=== PATIENT | male | born 1950 | race African-American/Black ===

== ENCOUNTER 2024-07-01 22:36 | Inpatient (IN) | payer OTHER ==
[~2024-07-01] VITALS: Ht 175.3 cm; Wt 50.0 kg
[2024-07-01 23:31] LABS: BASOPHILS % (AUTO) 0.7 % (0.0-2.0); HEMATOCRIT 36.1 % (41-53); HEMOGLOBIN 11.3 g/dL (13.5-17.5); LYMPHOCYTES # (AUTO) 0.5 K/uL (1.0-4.8); LYMPHOCYTES % (AUTO) 6.4 % (22.0-44.0); MEAN CORPUSCULAR HEMOGLOBIN 27.1 pg (26.0-34.0); MEAN CORPUSCULAR HGB CONC 31.3 G/dL (31.0-37.0); MEAN CORPUSCULAR VOLUME 87 fL (80-100); MONOCYTES # (AUTO) 0.5 K/uL (0.1-1.0); MONOCYTES % (AUTO) 6.9 % (2.0-9.0); NEUTROPHILS # (AUTO) 6.1 K/uL (1.8-7.7); PLATELET COUNT (AUTO) 370 K/uL (150-450); RED BLOOD CELL COUNT(AUTO) 4.17 MIL/uL (4.50-5.90); RED CELL DISTRIBUTION WIDTH 15.8 % (11.5-14.5); WHITE BLOOD COUNT (AUTO) 7.2 K/uL (4.5-11.0)
[2024-07-01 23:40] LABS: ANION GAP 14 mmol/L (8-16); CALCIUM, TOTAL 9.3 mg/dL (8.8-10.5); CARBON DIOXIDE 22 mmol/L (22-29); CHLORIDE 100 mmol/L (98-107); CREATININE 2.45 mg/dL (0.60-1.30); GLOMERULAR FILTR. RATE CALC 32 mL/min (>60); GLUCOSE,RANDOM 103 mg/dL (70-110); POTASSIUM 4.3 mmol/L (3.5-5.1); SODIUM SERUM 136 mmol/L (136-145); UREA NITROGEN, BLOOD 29 mg/dL (7-18)
[2024-07-01] MEDS: MAGNESIUM SULFATE 2 GM, MVI, ADULT NO.1 WITH VIT K 10 ML, THIAMINE 100 MG, FOLIC ACID 1... IV ONE (23:41)
[2024-07-01] MEDS ORDERED: ONDANSETRON HCL 4 MG/2 ML VIAL IVP PRN (23:45)
[2024-07-01] MEDS ORDERED: ACETAMINOPHEN 325 MG TABLET PO PRN (23:45)
[2024-07-01 23:50] LABS: LIPASE 48 U/L (16-77)
[2024-07-01 23:54] LABS: LACTIC ACID 4.2 mmol/L (0.4-2.0); TROPONIN I-HIGH SENSITIVITY 703 ng/L (<76)
[2024-07-02 00:12] LABS: ALCOHOL, BLOOD (SERUM) < 3 mg/dL (0-10)
[2024-07-02] MEDS: HEPARIN SODIUM,PORCINE 5,000 UNITS/ML VIAL SQ SCH (00:12)
[2024-07-02 00:22] LABS: CREATINE KINASE, TOTAL ONLY 239 U/L (39-308)
[2024-07-02] MEDS: SODIUM CHLORIDE 0.9% 1,000 ML IV ONE ×2 (00:45→01:05)
[2024-07-02 01:59] LABS: APPEARANCE,URINE HAZY (CLEAR); BILIRUBIN,URINE NEGATIVE (NEGATIVE); COLOR,URINE YELLOW (YELLOW); GLUCOSE, URINE (UA) NEGATIVE (NEGATIVE); KETONES,URINE NEGATIVE (NEGATIVE); LEUKOCYTE ESTERASE ,URINE LARGE (NEGATIVE); NITRATE,URINE NEGATIVE (NEGATIVE); OCCULT BLOOD,URINE SMALL (NEGATIVE); PH,URINE 7.5 (5.0-8.0); PROTEIN,URINE 30-70 mg/dL (NEGATIVE); SPECIFIC GRAVITIY, URINE 1.017 (1.003-1.030); UROBILINOGEN,URINE <=1.0 mg/dL (<=1.0)
[2024-07-02 02:01] LABS: CREATININE,URINE RANDOM 159.4 mg/dL (30.0-125.0); SODIUM,URINE RANDOM 63 mmol/l (20-110)
[2024-07-02 02:20] LABS: RBC,URINE 0-2 /HPF (0-2)
[2024-07-02 02:21] LABS: AMORPHOUS SEDIMENT,UR Few /LPF (None Seen); BACTERIA,URINE None Seen /HPF (None Seen); SQUAMOUS EPITHELIAL CELL,UR Few /LPF (None Seen); URIC ACID CRYSTALS,URINE Few /LPF (None Seen); YEAST,URINE None Seen /HPF (None Seen)
[2024-07-02 04:32] LABS: BASOPHILS % (AUTO) 0.6 % (0.0-2.0); EOSINOPHILS % (AUTO) 1.6 % (1.0-6.0); HEMATOCRIT 33.8 % (41-53); HEMOGLOBIN 10.8 g/dL (13.5-17.5); LYMPHOCYTES # (AUTO) 0.7 K/uL (1.0-4.8); LYMPHOCYTES % (AUTO) 10.3 % (22.0-44.0); MEAN CORPUSCULAR HEMOGLOBIN 27.2 pg (26.0-34.0); MEAN CORPUSCULAR HGB CONC 31.8 G/dL (31.0-37.0); MEAN CORPUSCULAR VOLUME 86 fL (80-100); MONOCYTES # (AUTO) 0.6 K/uL (0.1-1.0); MONOCYTES % (AUTO) 8.5 % (2.0-9.0); NEUTROPHILS # (AUTO) 5.2 K/uL (1.8-7.7); PLATELET COUNT (AUTO) 375 K/uL (150-450); RED BLOOD CELL COUNT(AUTO) 3.95 MIL/uL (4.50-5.90); RED CELL DISTRIBUTION WIDTH 15.7 % (11.5-14.5); WHITE BLOOD COUNT (AUTO) 6.6 K/uL (4.5-11.0)
[2024-07-02] MEDS: ASPIRIN 325 MG TABLET PO ONE (04:32)
[2024-07-02 04:40] LABS: CALCIUM, TOTAL 8.3 mg/dL (8.8-10.5); CREATININE 1.91 mg/dL (0.60-1.30); MAGNESIUM 2.9 mg/dL (1.80-2.40); POTASSIUM 4.4 mmol/L (3.5-5.1)
[2024-07-02 04:49] LABS: TROPONIN I-HIGH SENSITIVITY 889 ng/L (<76)
[2024-07-02] MEDS: DOCUSATE SODIUM 100 MG CAPSULE PO SCH (09:33)
[2024-07-02 11:18] VITALS: BP 132/95; PULSE 77; RESP 17; TEMP 98.2; O2SAT 99
[2024-07-02 11:36] LABS: GLUCOMETER DEV NAME(LOC) 5S.2D; GLUCOSE,POINT OF CARE 63 MG/DL (70-110)
[2024-07-02] MEDS ORDERED: DEXTROSE 50%-WATER 25 GM/50 ML SYRINGE IVP PRN (12:30)
[2024-07-02] MEDS: SODIUM CHLORIDE 0.9% 1,000 ML IV SCH (13:22)
[2024-07-02 15:29] VITALS: BP 125/93; PULSE 84; RESP 19; TEMP 97.5; O2SAT 97
[2024-07-02 17:40] LABS: GLUCOMETER DEV NAME(LOC) 5N.1D; GLUCOSE,POINT OF CARE 60 MG/DL (70-110)
[2024-07-02] MEDS: ASPIRIN 81 MG CHEWABLE TABLET PO SCH (17:55)
[2024-07-02] MEDS: ATORVASTATIN CALCIUM 40 MG TABLET PO ONE (17:55)
[2024-07-02] MEDS: CARVEDILOL 3.125 MG TABLET PO SCH (17:56)
[2024-07-02 18:28] LABS: TROPONIN I-HIGH SENSITIVITY 1026 ng/L (<76)
[2024-07-02] MEDS ORDERED: HEPARIN SODIUM,PORCINE 5,000 UNITS/ML VIAL IVP PRN ×3 (18:45→19:00)
[2024-07-02] MEDS ORDERED: HEPARIN SODIUM,PORCINE 5,000 UNITS/ML VIAL IVP ONE ×2 (18:45→19:00)
[2024-07-02 20:00] VITALS: BP 130/80; PULSE 91; RESP 18; TEMP 98.2; O2SAT 96
[2024-07-02 20:46] LABS: BASOPHILS % (AUTO) 0.7 % (0.0-2.0); EOSINOPHILS % (AUTO) 4.3 % (1.0-6.0); HEMATOCRIT 29.7 % (41-53); HEMOGLOBIN 9.4 g/dL (13.5-17.5); LYMPHOCYTES # (AUTO) 0.7 K/uL (1.0-4.8); LYMPHOCYTES % (AUTO) 11.2 % (22.0-44.0); MEAN CORPUSCULAR HGB CONC 31.8 G/dL (31.0-37.0); MEAN CORPUSCULAR VOLUME 85 fL (80-100); MONOCYTES # (AUTO) 0.5 K/uL (0.1-1.0); MONOCYTES % (AUTO) 7.9 % (2.0-9.0); NEUTROPHILS # (AUTO) 4.5 K/uL (1.8-7.7); NEUTROPHILS % (AUTO) 75.9 % (40.0-70.0); PLATELET COUNT (AUTO) 311 K/uL (150-450); RED BLOOD CELL COUNT(AUTO) 3.49 MIL/uL (4.50-5.90); RED CELL DISTRIBUTION WIDTH 15.4 % (11.5-14.5); WHITE BLOOD COUNT (AUTO) 5.9 K/uL (4.5-11.0)
[2024-07-03] VITALS (7 sets, daily range): BP systolic 128–138; BP diastolic 66–88; PULSE 82–93; RESP 16–18; TEMP 97.6–98.7; O2SAT 95–99
[2024-07-03 07:15] LABS: GLUCOMETER DEV NAME(LOC) 5N.1D; GLUCOSE,POINT OF CARE 83 MG/DL (70-110)
[2024-07-03 07:24] LABS: BASOPHILS % (AUTO) 1.7 % (0.0-2.0); EOSINOPHILS % (AUTO) 5.9 % (1.0-6.0); HEMATOCRIT 30.9 % (41-53); HEMOGLOBIN 9.9 g/dL (13.5-17.5); LYMPHOCYTES # (AUTO) 0.6 K/uL (1.0-4.8); LYMPHOCYTES % (AUTO) 11.9 % (22.0-44.0); MEAN CORPUSCULAR HEMOGLOBIN 27.4 pg (26.0-34.0); MEAN CORPUSCULAR HGB CONC 32.1 G/dL (31.0-37.0); MEAN CORPUSCULAR VOLUME 86 fL (80-100); MONOCYTES # (AUTO) 0.4 K/uL (0.1-1.0); MONOCYTES % (AUTO) 7.3 % (2.0-9.0); NEUTROPHILS # (AUTO) 3.9 K/uL (1.8-7.7); NEUTROPHILS % (AUTO) 73.2 % (40.0-70.0); PLATELET COUNT (AUTO) 325 K/uL (150-450); RED BLOOD CELL COUNT(AUTO) 3.61 MIL/uL (4.50-5.90); RED CELL DISTRIBUTION WIDTH 15.7 % (11.5-14.5); WHITE BLOOD COUNT (AUTO) 5.3 K/uL (4.5-11.0)
[2024-07-03 07:42] LABS: CREATINE KINASE, TOTAL ONLY 169 U/L (39-308)
[2024-07-03 07:48] LABS: TROPONIN I-HIGH SENSITIVITY 815 ng/L (<76)
[2024-07-03] MEDS: ATORVASTATIN CALCIUM 40 MG TABLET PO SCH (08:14)
[2024-07-03 08:17] LABS: PROTHROMBIN TIME 11.1 SEC (9.4-11.6)
[2024-07-03] MEDS: HEPARIN SODIUM 25000 UNITS/D5W 250 ML IV PRN (09:17)
[2024-07-03] MEDS: PERMETHRIN 1% 60 ML LOTION TP ONE (10:00)
[2024-07-03] MEDS: CefTRIAXone 1 GM/DEXTROSE 50 ML IV SCH (14:00)
[2024-07-04 01:30] LABS: GLUCOMETER DEV NAME(LOC) 5N.1D; GLUCOSE,POINT OF CARE 112 MG/DL (70-110)
[2024-07-04 01:31] LABS: GLUCOMETER DEV NAME(LOC) 5N.1D; GLUCOSE,POINT OF CARE 116 MG/DL (70-110)
[2024-07-04] MEDS: HEPARIN SODIUM,PORCINE 5,000 UNITS/ML VIAL IVP PRN (03:30)
[2024-07-04 03:40] VITALS: BP 128/72; PULSE 88; RESP 18; TEMP 98.2; O2SAT 99
[2024-07-04 04:37] LABS: APPEARANCE,URINE CLEAR (CLEAR); BILIRUBIN,URINE NEGATIVE (NEGATIVE); COLOR,URINE COLORLESS (YELLOW); GLUCOSE, URINE (UA) NEGATIVE (NEGATIVE); KETONES,URINE NEGATIVE (NEGATIVE); LEUKOCYTE ESTERASE ,URINE NEGATIVE (NEGATIVE); NITRATE,URINE NEGATIVE (NEGATIVE); OCCULT BLOOD,URINE NEGATIVE (NEGATIVE); PH,URINE 7.5 (5.0-8.0); PH,URINE DRUG SCREEN 7.5 (5.0-8.0); PROTEIN,URINE NEGATIVE (NEGATIVE); UROBILINOGEN,URINE <=1.0 mg/dL (<=1.0)
[2024-07-04 05:37] LABS: ALCOHOL, URINE DRUG SCREEN NEGATIVE (NEGATIVE); AMPHET/METH SCREEN,URINE NEGATIVE (NEGATIVE); BARBITURATE SCREEN, URINE NEGATIVE (NEGATIVE); BENZODIAZEPINES SCREEN,URINE NEGATIVE (NEGATIVE); CANNABINOID SCREEN,URINE NEGATIVE (NEGATIVE); COCAINE SCREEN,URINE POSITIVE (NEGATIVE); CREATININE,URINE RANDOM 27.2 mg/dL (30.0-125.0); METHADONE SCREEN, URINE NEGATIVE (NEGATIVE); OPIATE SCREEN,URINE NEGATIVE (NEGATIVE); PHENCYCLIDINE SCREEN,URINE NEGATIVE (NEGATIVE); PROTEIN,URINE RANDOM 9 mg/dL (0-11.9); SODIUM,URINE RANDOM 120 mmol/l (20-110); UREA NITROGEN,URINE RANDOM 374 mg/dL (350-1000)
[2024-07-04 07:12] LABS: ANION GAP 10 mmol/L (8-16); CALCIUM, TOTAL 8.6 mg/dL (8.8-10.5); CARBON DIOXIDE 23 mmol/L (22-29); CHLORIDE 104 mmol/L (98-107); CREATININE 1.15 mg/dL (0.60-1.30); GLOMERULAR FILTR. RATE CALC > 60 mL/min (>60); GLUCOSE,RANDOM 81 mg/dL (70-110); PHOSPHORUS 2.8 mg/dL (2.5-4.9); SODIUM SERUM 137 mmol/L (136-145); UREA NITROGEN, BLOOD 30 mg/dL (7-18)
[2024-07-04 07:26] LABS: % IRON SATURATION 46.3 % (30-44)
[2024-07-04 08:00] VITALS: BP 115/79; PULSE 96; RESP 18; TEMP 98.2; O2SAT 97
[2024-07-04 12:07] VITALS: BP 142/82; PULSE 90; RESP 18; TEMP 98.1; O2SAT 98
[2024-07-04] MEDS: MAGNESIUM SULFATE 3 GM in DEXTROSE 5%-WATER 100 ML IV ONE (12:17)
[2024-07-04 15:33] VITALS: BP 118/86; PULSE 97; RESP 18; TEMP 98; O2SAT 98
[2024-07-04 19:50] VITALS: BP 97/62; PULSE 91; RESP 18; TEMP 97.9; O2SAT 100
[2024-07-05] VITALS: BP 131/88; PULSE 84; RESP 20; TEMP 98.4; O2SAT 100
[2024-07-05] MEDS: HEPARIN SODIUM,PORCINE 5,000 UNITS/ML VIAL IVP PRN (01:36)
[2024-07-05 04:00] VITALS: BP 118/96; PULSE 90; RESP 19; TEMP 98.2; O2SAT 100
[2024-07-05 08:05] LABS: BASOPHILS % (AUTO) 1.6 % (0.0-2.0); EOSINOPHILS % (AUTO) 6.3 % (1.0-6.0); HEMATOCRIT 29.6 % (41-53); HEMOGLOBIN 9.5 g/dL (13.5-17.5); LYMPHOCYTES % (AUTO) 14.4 % (22.0-44.0); MEAN CORPUSCULAR HEMOGLOBIN 27.6 pg (26.0-34.0); MEAN CORPUSCULAR HGB CONC 32.2 G/dL (31.0-37.0); MEAN CORPUSCULAR VOLUME 86 fL (80-100); MONOCYTES # (AUTO) 0.6 K/uL (0.1-1.0); NEUTROPHILS # (AUTO) 4.6 K/uL (1.8-7.7); NEUTROPHILS % (AUTO) 68.7 % (40.0-70.0); PLATELET COUNT (AUTO) 331 K/uL (150-450); RED BLOOD CELL COUNT(AUTO) 3.45 MIL/uL (4.50-5.90); RED CELL DISTRIBUTION WIDTH 15.5 % (11.5-14.5); WHITE BLOOD COUNT (AUTO) 6.7 K/uL (4.5-11.0)
[2024-07-05 08:23] LABS: ANION GAP 7 mmol/L (8-16); CALCIUM, TOTAL 8.4 mg/dL (8.8-10.5); CARBON DIOXIDE 25 mmol/L (22-29); CHLORIDE 100 mmol/L (98-107); CREATININE 1.27 mg/dL (0.60-1.30); GLOMERULAR FILTR. RATE CALC > 60 mL/min (>60); GLUCOSE,RANDOM 76 mg/dL (70-110); POTASSIUM 4.8 mmol/L (3.5-5.1); SODIUM SERUM 132 mmol/L (136-145); UREA NITROGEN, BLOOD 26 mg/dL (7-18)
[2024-07-05 09:00] VITALS: BP 126/88; PULSE 86; RESP 18; TEMP 98; O2SAT 98
[2024-07-05 11:43] VITALS: BP 96/64; PULSE 97; RESP 18; TEMP 98; O2SAT 97
[2024-07-05 12:57] LABS: TROPONIN I-HIGH SENSITIVITY 272 ng/L (<76)
[2024-07-05 15:51] VITALS: BP 100/61; PULSE 90; RESP 18; TEMP 98; O2SAT 97
[2024-07-05] MEDS ORDERED: SODIUM CHLORIDE 0.9% 250 ML IV ONE (17:19)
[2024-07-05] MEDS: LOSARTAN POTASSIUM 25 MG TABLET PO SCH (18:19)
[2024-07-05 20:41] VITALS: BP 112/80; PULSE 97; RESP 18; TEMP 98.1; O2SAT 100
[2024-07-05] MEDS: PERMETHRIN 1% 60 ML LOTION TP ONE (21:35)
[2024-07-06] VITALS: BP 109/72; PULSE 92; RESP 18; TEMP 97.9; O2SAT 100
[2024-07-06 04:59] VITALS: BP 110/74; PULSE 90; RESP 18; TEMP 98.1; O2SAT 99
[2024-07-06 07:01] LABS: BASOPHILS % (AUTO) 1.5 % (0.0-2.0); EOSINOPHILS % (AUTO) 5.6 % (1.0-6.0); HEMATOCRIT 25.9 % (41-53); HEMOGLOBIN 8.4 g/dL (13.5-17.5); LYMPHOCYTES # (AUTO) 1.1 K/uL (1.0-4.8); LYMPHOCYTES % (AUTO) 14.3 % (22.0-44.0); MEAN CORPUSCULAR HEMOGLOBIN 27.8 pg (26.0-34.0); MEAN CORPUSCULAR HGB CONC 32.3 G/dL (31.0-37.0); MEAN CORPUSCULAR VOLUME 86 fL (80-100); MONOCYTES # (AUTO) 0.6 K/uL (0.1-1.0); MONOCYTES % (AUTO) 8.1 % (2.0-9.0); NEUTROPHILS # (AUTO) 5.4 K/uL (1.8-7.7); NEUTROPHILS % (AUTO) 70.5 % (40.0-70.0); PLATELET COUNT (AUTO) 341 K/uL (150-450); RED BLOOD CELL COUNT(AUTO) 3.02 MIL/uL (4.50-5.90); RED CELL DISTRIBUTION WIDTH 15.8 % (11.5-14.5); WHITE BLOOD COUNT (AUTO) 7.6 K/uL (4.5-11.0)
[2024-07-06 07:29] VITALS: BP 110/67; PULSE 80; RESP 18; TEMP 98; O2SAT 98
[2024-07-06] MEDS: CLOPIDOGREL BISULFATE 75 MG TABLET PO SCH (08:50)
[2024-07-06] MEDS: ASPIRIN 81 MG CHEWABLE TABLET PO SCH (08:51)
[2024-07-06] MEDS ORDERED: SESTAMIBI TC99M/UD ISOTOPE 1 EA INJ INJ ONE ×2 (10:40→14:20)
[2024-07-06 10:50] VITALS: BP 110/72; PULSE 90; RESP 18; TEMP 98.1; O2SAT 97
[2024-07-06] MEDS ORDERED: REGADENOSON 0.4 MG/5 ML PF SYRINGE IVP ONE (12:04)
[2024-07-06] MEDS: REGADENOSON 0.4 MG/5 ML PF SYRINGE IVP ONE (14:47)
[2024-07-06 15:41] VITALS: BP 117/60; PULSE 82; RESP 18; TEMP 97.7; O2SAT 97
[2024-07-06 21:50] VITALS: BP 99/74; PULSE 95; RESP 17; TEMP 98.4; O2SAT 100
[2024-07-07 01:32] VITALS: BP 100/70; PULSE 70; RESP 18; TEMP 98; O2SAT 100
[2024-07-07 04:00] VITALS: BP 121/80; PULSE 84; RESP 18; TEMP 98.1; O2SAT 97
[2024-07-07 08:55] VITALS: BP 118/78; PULSE 80; RESP 18; TEMP 98; O2SAT 98
[2024-07-07] MEDS: SPIRONOLACTONE 25 MG TABLET PO SCH (09:57)
[2024-07-07] MEDS ORDERED: ATOR40TA71 PO (10:46)
[2024-07-07] MEDS ORDERED: CARV3 PO (10:46)
[2024-07-07] MEDS ORDERED: LOSA-417 PO (10:46)
[2024-07-07] MEDS ORDERED: CLOP75TA33 PO (10:46)
[2024-07-07] MEDS ORDERED: SPIR-37 PO (10:46)
[2024-07-07] MEDS ORDERED: ASPI-1450 PO (10:46)
[2024-07-07 11:30] VITALS: BP 120/81; PULSE 86; RESP 18; TEMP 98; O2SAT 96
[2024-07-07 17:30] VITALS: BP 118/82; PULSE 82; RESP 18; TEMP 98; O2SAT 97
== END 2024-07-07 19:55 | disposition home or self-care (01) | DRG 190 ==
LOC: EMS 22:36 → EDH 23:42 → UNDOADMIN 07-02 00:18 → EDH 07-02 09:05 → 5S 07-02 09:05
PROVIDERS: ADMIT Internal Medicine; ATTEND Internal Medicine
PROC: 4A02XM4 Measurement of Cardiac Total Activity, External Approach (ICD-10-PCS; principal; 2024-07-07)
PROC: 3E033HZ Introduction of Radioactive Substance into Peripheral Vein, Percutaneous Approach (ICD-10-PCS; 2024-07-07)
DX: I21.4 Non-ST elevation (NSTEMI) myocardial infarction (principal); E43 Unspecified severe protein-calorie malnutrition; E87.20 Acidosis, unspecified; N17.9 Acute kidney failure, unspecified; I13.0 Hypertensive heart and chronic kidney disease with heart failure and stage 1 through stage 4 chronic kidney disease, or unspecified chronic kidney disease; I50.22 Chronic systolic (congestive) heart failure; I42.9 Cardiomyopathy, unspecified; B85.2 Pediculosis, unspecified; B86 Scabies; D64.9 Anemia, unspecified; N18.9 Chronic kidney disease, unspecified; F14.90 Cocaine use, unspecified, uncomplicated; F17.210 Nicotine dependence, cigarettes, uncomplicated; E16.2 Hypoglycemia, unspecified; N13.30 Unspecified hydronephrosis; N32.9 Bladder disorder, unspecified; N28.1 Cyst of kidney, acquired; Z79.899 Other long term (current) drug therapy; Z79.02 Long term (current) use of antithrombotics/antiplatelets; Z79.82 Long term (current) use of aspirin; Z87.01 Personal history of pneumonia (recurrent); Z68.1 Body mass index [BMI] 19.9 or less, adult
CPT/HCPCS: 71045; 76770; 78452; 80048; 80307; 81001; 81003; 82550; 82570; 82728; 82962; 83540; 83550; 83605; 83690; 83735; 84100; 84156; 84300; 84484; 84540; 85025; 85610; 85730; 87086; 93005; 93306; 96374; 99285; A9500; G0378; G0480; J0696; J1644; J2785; J3411; J3475; J3490; J7030; J7050; J7060; 36415-L1; 36415-TC